=== PATIENT | female | born 1950 | race Caucasian/White ===

== ENCOUNTER 2021-04-28 13:41 | Inpatient (IN) | payer MEDICARE, OTHER ==
[2021-04-28] VITALS (21 sets, daily range): BP systolic 54–187; BP diastolic 38–131
[~2021-04-28] VITALS: Ht 162.6 cm; Wt 76.3 kg
[~2021-04-28 13:41] MED LIST: CITA10TA8 PO; CYCL10TA19 PO; HYDR1TAB16 PO
--- NOTE | 2021-04-28 14:18 | NUR ---
Pt admitted to room 110 from [place] ED via EMS at 1330. Pt is intubated and occasionally externally pacing. Pt had a large liquid stool upon transfer to room. Pt cleaned and rectal tube placed with copious amounts of liquid stool draining. Left allison I/O removed due to displacement and dressing applied. SR/ST on monitor, Dr. Wyatt here to see pt and instructed to turn pacemaker rate down to 45. Dr. Noble here to see pt as well and is to place orders. Family at bedside, updated on pt condition and plan of care.
--- NOTE | 2021-04-28 14:36 | PDOC2 ---
CONSULT Date of Consult Date of Consult DATE: 04/28/21 TIME: 14:27 Reason for Consult Reason for Consult: Cardiac arrest Referring Physician Referring Physician: Dr. Noble Identification/Chief Complaint Chief Complaint The patient was found unresponsive at home. Source Source: Chart review History of Present Illness Reason for Visit: The patient is a 70-year-old female who was found unresponsive by her family at home. Paramedics were called and they initiated transport to [facility]. In route the patient lost her pulse although she has been unresponsive throughout the transport. CPR was started in the ambulance. Upon arrival in the emergency room the patient was asystolic. ACLS protocols were maintained for an extended period of time and the patient apparently briefly needed external pacing. The patient was initially found to be asystolic upon arrival in the emergency room. After extensive efforts and after intubation the patient rhythm was converted to a sinus tachycardia. She continued on baseline treatments including ventilator support and was transported to [facility]. Initial labs at [facility] include a potassium of 4.3 creatinine of 1.1 glucose of 219 troponin of 26 white count 12.4 hemoglobin of 12.6 hematocrit of 38.8. Rapid Covid was negative. Chest x-ray showed bilateral pulmonary edema. EKG showed a sinus tachycardia with nonspecific ST-T wave changes and a possible left bundle. The patient is now nonresponsive on a ventilator in the intensive care unit at [place]. Heart rate of 110, blood pressure 158/98. Past Medical History Cardiovascular: CAD, CHF, HTN, Hyperlipidemia Endocrine: Hyperthyroidism Past Surgical History Past Surgical History: Other (Right carotid endarterectomy) Family History Family History: Heart Disease Social History No Current Medications Current Medications Active Scripts Active Reported Celexa (Citalopram Hydrobromide) 10 Mg Tablet 1 Tab PO DAILY Cyclobenzaprine Hcl 10 Mg Tablet 1 Tab PO TID Vicodin Hp 10-300 Mg Tablet (Hydrocodone Bit/Acetaminophen) 1 Each Tablet 1 Each PO Q6H PRN Allergies Allergies: Coded Allergies: atropine (Verified Allergy, Intermediate, Rash, 03/18/14) diphenoxylate (Verified Allergy, Intermediate, Rash, 03/18/14) ROS Review of System The patient is intubated. Physical Exam General: Other (Intubated and nonresponsive.) Lungs: Other (Bilaterally decreased breath sounds) Heart: Other (Rate of 104.) Abdomen: Other (Mildly decreased bowel sounds) Vitals VITALS Vital Signs Date Time Temp Pulse Resp B/P (MAP) Pulse Ox O2 Delivery O2 Flow Rate FiO2 04/28/21 13:34 100 Ventilator Labs Labs Laboratory Tests Test 04/28/21 13:59 Glucose (Fingerstick) 304 mg/dL (70-99) Laboratory Tests Test 04/28/21 13:59 Glucose (Fingerstick) 304 mg/dL (70-99) Images Images Chest x-ray at [facility] showed bilateral pulmonary edema Assessment/Plan Assessment/Plan 1. Out of hospital cardiac arrest. Prolonged efforts at resuscitation as above. Patient is now intubated. Rhythm is a sinus tachycardia. Blood pressure systolic of greater than 150. Pulmonary consult for ventilator management. Patient is being evaluated for possible CT scanning. She has had no significant bradycardia arrhythmias since her initial resuscitation and will continue to monitor in the ICU. 2. Respiratory failure secondary to cardiac arrest as above. Intubated. Initial chest x-ray showed pulmonary edema. Will consider diuresis later today after further testing has been obtained. Pulmonary evaluation as noted above. 3. History of possible coronary artery disease. Initial troponin is normal. We will trend. We will continue present medications. Echocardiogram for LV function. 4. Previous right carotid endarterectomy. 5. History of hyperlipidemia. Will check morning lab. RYAN KOENIG MD Apr 28, 2021 14:36
[2021-04-28] MEDS ORDERED: POTASSIUM CHLORIDE 20MEQ 100 ML IV SCH ×3 (14:45→15:00)
[2021-04-28] MEDS ORDERED: ONDANSETRON PF 4 MG/2 ML VIAL. IVP PRN (14:45)
[2021-04-28] MEDS ORDERED: SODIUM PHOSPHATE 40 MMOL in IV NORMAL SALINE 250ML 250 ML IV ONE (14:45)
[2021-04-28] MEDS ORDERED: POTASSIUM PHOS,M-BASIC-D-BASIC 13.6 MMOL in IV NORMAL SALINE 250ML 250 ML IV SCH (14:45)
[2021-04-28] MEDS ORDERED: DOCUSATE SODIUM 100 MG CAPSULE. PO PRN (14:45)
[2021-04-28] MEDS ORDERED: POTASSIUM CHLORIDE 10MEQ 100 ML IV SCH ×3 (14:45)
[2021-04-28] MEDS ORDERED: POTASSIUM CHLORIDE 20 MEQ TABLET.ER. PO SCH ×2 (14:45)
[2021-04-28] MEDS ORDERED: POTASSIUM CHLORIDE 20 MEQ TABLET.ER. PO ONE (14:45)
[2021-04-28] MEDS ORDERED: SENNOSIDES 8.6 MG TABLET PO PRN (14:45)
--- NOTE | 2021-04-28 14:45 | PDOC1 ---
History and Physical Date of Service: DOS: DATE: 04/28/21 TIME: 14:28 Chief Complaint: Chief Complain: Found unresponsive History of Present Illness: HPI: 70-year-old female who presents by EMS to [facility] as a CODE BLUE. Patient was intubated in the field and all history is obtained from EMS. Patient was most reported well at around 730 according to the ex-. However patient was found at 830 and she was unresponsive by her ex-. Patient found her and her heart rate was in the 40s and was not breathing. CPR was initiated in route. Prior to arrival to the emergency room pulses were lost and CPR was restarted. One dose of epinephrine was given. ROSC he was achieved in the ED. Patient did not require any sedation through the process. [facility] decided to transfer to [facility] for further ICU care. No family to be found when patient arrived to the ICU. Patient currently is on Levophed at 0.2 mics per minute and not requiring any external pacing with the pacer threshold set at 40 bpm. Heart rate currently is 90 bpm. Patient is unresponsive upon my exam and pulse are bilaterally dilated and fixed. Patient is completely off of sedation. There is liquidy stool in the rectal tube that is foul-smelling. No other lesions or wounds or infectious sources are found. Past Medical/Surgical History: PMH/PSH: Past medical history: Dyslipidemia, coronary heart disease, hypertension, hypothyroidism No known past surgical history Allergies: Allergies: Coded Allergies: atropine (Verified Allergy, Intermediate, Rash, 03/18/14) diphenoxylate (Verified Allergy, Intermediate, Rash, 03/18/14) Family History: Family History: Reviewed with no relevant findings Social History: Social History: 1 pack/day smoker Current Medications: Current Medications Active Scripts Active Reported Celexa (Citalopram Hydrobromide) 10 Mg Tablet 1 Tab PO DAILY Cyclobenzaprine Hcl 10 Mg Tablet 1 Tab PO TID Vicodin Hp 10-300 Mg Tablet (Hydrocodone Bit/Acetaminophen) 1 Each Tablet 1 Each PO Q6H PRN ROS: Review of Systems Review of System Unable to obtain due to intubation Physical Exam: Vital Signs: Vital Signs Date Time Temp Pulse Resp B/P (MAP) Pulse Ox O2 Delivery O2 Flow Rate FiO2 04/28/21 13:34 100 Ventilator Physcial Exam: GEN: Intubated HEENT: Normal cephalic, atraumatic, external auditory canals are patent EYES: Pupils are equally dilated. Does not react to light. MUSCULOSKELETAL: Well developed ENDOCRINE: No thyromegaly was palpated LYMPHATICS: No cervical chain or axillary nodes were noted HEMATOPOIETIC: No bruising NECK: Supple, no JVD, no thyromegaly was noted LUNGS: Bilateral crackles HEART: RRR, Peripheral pulses intact, no obvious murmurs noted ABDOMEN: Soft, nontender. Positive bowel sounds, no organomegaly, normal mary wel sounds rectal tube in place with copious amounts of liquid stool. EXTREMITIES: Without clubbing, cyanosis, or edema. Pedal pulses intact. Negative Homans sign NEUROLOGIC: Currently sedated SKIN: No ulcerations or rashes, good skin turgor, no jaundice Labs: Labs: Laboratory Tests Test 04/28/21 13:59 Glucose (Fingerstick) 304 mg/dL (70-99) Laboratory Tests Test 04/28/21 13:59 Glucose (Fingerstick) 304 mg/dL (70-99) Images: Images Chest x-ray reviewed from [facility] showing left worse than right diffuse pulmonary infiltrates Assessment/Plan Assessment/Plan Cardiogenic shock requiring Levophed Hemodynamically unstable bradycardia requiring external pacemaker Acute hypoxic respiratory failure Cardiac arrest ANTIONETTE due to vasomotor nephropathy Bilateral pulmonary infiltrates, likely aspiration pneumonia History of coronary heart disease History of hyperthyroidism History of hypertension Admit to ICU for further management Cardiology consult to consider pacemaker placement Pulmonology consult for vent management Neurology consult Pending CT head and chest abdomen pelvis Pending C. difficile Continue IV Zosyn Continue property assessment monitor Continue external pacemaking Continue vasopressors with map goals greater than 55 SCD for DVT prophylaxis Protonix while intubated GI prophylaxis ADA diet CODE STATUS unknown Discussed with RN and SW Disposition ICU management as above DPOA: Ex-, daughter A total of 55 minutes of critical care time was spent in reviewing chart, labs, and images. Discussed with RN and SW. Justifications for Admission Other Justification WILLIAM DUCKWORTH MD Apr 28, 2021 14:45
[2021-04-28] MEDS ORDERED: ELECTROLYTE (ICU) PROTOCOL. MC PRN (15:00)
[2021-04-28] MEDS ORDERED: NOREPINEPHRINE VIAL 8 MG in IV DEXTROSE 5% 250 ML IV PRN (15:15)
[2021-04-28 15:32] LABS: BASO # 0.1 x10^3/uL (0.0-0.2); BASO % 0 % (0-3); EOS # 0.1 x10^3/uL (0.0-0.7); EOS % 0 % (0-3); HEMATOCRIT 47.4 % (36.0-47.0); HEMOGLOBIN 15.7 g/dL (12.0-15.5); LYMPH # 1.8 x10^3/uL (1.0-4.8); LYMPH % 6 % (24-48); MEAN CORPUSCULAR HEMOGLOBIN 30 pg (25-35); MEAN CORPUSCULAR HGB CONC 33 g/dL (31-37); MEAN CORPUSCULAR VOLUME 90 fL (79-100); MONO # 2.2 x10^3/uL (0.0-1.1); MONO % 7 % (0-9); NEUT # 26.6 x10^3/uL (1.8-7.7); NEUT % 86 % (31-73); PLATELET COUNT 268 x10^3/uL (140-400); RED BLOOD COUNT 5.26 x10^6/uL (3.50-5.40); RED CELL DISTRIBUTION WIDTH 14.1 % (11.5-14.5); WHITE BLOOD COUNT 30.8 x10^3/uL (4.0-11.0)
[2021-04-28 15:54] LABS: ALBUMIN 3.8 g/dL (3.4-5.0); ALBUMIN/GLOBULIN RATIO 1.1 (1.0-1.7); CALCIUM 8.4 mg/dL (8.5-10.1); CREATININE 1.7 mg/dL (0.6-1.0); GFR 29.7; MAGNESIUM 2.1 mg/dL (1.8-2.4); POTASSIUM 4.9 mmol/L (3.5-5.1); TOTAL BILIRUBIN 1.2 mg/dL (0.2-1.0); TOTAL PROTEIN 7.3 g/dL (6.4-8.2)
[2021-04-28 16:08] LABS: BASE EXCESS ABG -1 mmol/L (-3-3); CORRECTED PCO2 ABG 29 mmHg; CORRECTED PH ABG 7.49; CORRECTED PO2 ABG 129 mmHg; HCO3 ABG 22 mmol/L (21-28); SAT O2 ABG 98 % (92-99)
[2021-04-28 16:08] LABS: % BANDS 21 % (0-9); % LYMPHS 7 % (24-48); % MONOS 5 % (0-10); % SEGS 67 % (35-66); PLT ESTIMATE ADEQUATE (ADEQUATE)
[2021-04-28 16:09] LABS: FIO2 ABG 50/VENT
[2021-04-28 16:31] LABS: BARBITURATES NEG (NEG); BENZODIAZEPINES NEG (NEG); CANNABINOIDS NEG (NEG); COCAINE NEG (NEG); METHADONE NEG (NEG); OPIATES POS (NEG); PHENCYCLIDINE NEG (NEG)
[2021-04-28 16:34] LABS: AMPHETAMINE/METHAMPHETAMINE NEG (NEG)
--- NOTE | 2021-04-28 16:48 | RAD ---
FOR INTERNAL CODING PURPOSES Critical result: Findings discussed with Nancy, the nurse taking care of the patient in ICU at 04/28/2021 4:40 PM. RESULT CODE: (C) Exam performed: CT head without contrast HISTORY: Cardiac arrest DATE OF SERVICE: 04/28/2021. COMPARISON: CT head without contrast from May 19, 2012. TECHNIQUE: Contiguous helical acquisitions are obtained from the foramen magnum to the vertex without IV contrast. FINDINGS: There is diffuse subarachnoid hyperattenuation throughout consistent with subarachnoid hemorrhage. Th e ventricles are midline without evidence of dilatation. Normal wilson-white differentiation is lost. N o intraparenchymal hemorrhage or mass lesion is identified. There is no midline shift. IMPRESSION: Extensive subarachnoid hemorrhage. Electronically signed by: Justa Ayon MD (04/28/2021 4:46 PM) [facility]
--- NOTE | 2021-04-28 17:15 | RAD ---
EXAMINATION: CT chest, abdomen and pelvis without IV contrast. INDICATION:70 years, Female, cardiac arrest. TECHNIQUE: Axial CT images of the chest, abdomen and pelvis were obtained. Coronal and sagittal refor matted performed. COMPARISON: None. Exposure: One or more of the following individualized dose reduction techniques were utilized for thi s examination: 1. Automated exposure control 2. Adjustment of the mA and/or kV according to patient size 3. Use of iterative reconstruction technique. FINDINGS: CHEST: Visualized thyroid and esophagus are unremarkable. No lymphadenopathy in the chest by size criteria. Mild cardiomegaly. No pericardial effusion. Mild coronary artery atherosclerotic calcifications. Norm al caliber thoracic aorta and pulmonary arteries. Central airways are patent. Endotracheal tube tip terminates in the proximal left mainstem bronchus. Diffuse bronchial wall thickening in the lower lobes with endobronchial debris and atelectatic change s/consolidations in the lower lobes. Moderate centrilobular pulmonary emphysema. No pleural effusion or pneumothorax. Subsegmental atelectasis in the right middle lobe and lingula. There is a 3 mm pulmo nary nodule in the left upper lobe (series 2 image 20). Calcified granuloma in the right upper lobe. ABDOMEN/PELVIS: Within the limitation of noncontrast exam, Normal size and morphology of the liver. Subcentimeter hypodensity in the left hepatic lobe, too smal l to characterize. Cholecystectomy. Dilated central intrahepatic and extrahepatic biliary ducts with smooth tapering distally, the maximum diameter of the common bile duct measures 1.5 cm. No calcified choledocholithiasis. Spleen is unremarkable. Moderate to severe atrophic pancreatic parenchyma with f at infiltration. Nodular thickening of the left adrenal glands, without discrete nodule. No hydronephrosis or nephrolithiasis. Multiple simple and mildly complex cystic lesions in both renal cortices, the largest measures 7 cm. Some of the cysts demonstrate thin calcified wall or internal s eptation, for example a lobulated inferior pole right renal cyst measures 4.5 cm. These cysts are mos t consistent with Bosniak type I and type II cyst. Additional, three indeterminate hypodense lesions along the posterior cortex of the upper and lower poles as well as posterior lateral cortex of the in terpolar left kidney, the largest measures 3.0 cm. Nonspecific bilateral perinephric fat stranding. Rectal tube seen. No bowel obstruction or wall thickening. Fluid-filled nondistended small and large bowel loops with air-fluid levels, findings can be seen in diarrhea. Normal appendix. No pneumoperito neum or ascites. Mild infrarenal abdominal aortic aneurysm measures up to 3.3 cm in diameter. No lymp hadenopathy in the abdomen or pelvis by size criteria. Decompressed urinary bladder with Foleys arvind ter in place. Hysterectomy. No suspicious pelvic masses. MUSCULOSKELETAL: No acute osseous process or suspicious lesion. Posterior hardware fusion in the lower lumbar spine. D iffuse osteopenia. IMPRESSION: 1. Endotracheal tube tip terminates in the proximal left mainstem bronchus. Recommend 3 to 4 cm retr action. 2. Diffuse bronchial wall thickening in the lower lobes with endobronchial debris and atelectatic ch anges/consolidations in the lower lobes likely due to aspiration or pneumonia. 3. Moderate centrilobular pulmonary emphysema. 4. 3 mm pulmonary nodule in the left upper lobe. High-risk patient, consider 12 months follow-up wit h CT chest. 5. Three indeterminate hypodense lesions along the posterior cortex of the upper and lower poles as well as posterior lateral cortex of the interpolar left kidney. Differential includes complex hemorrh agic/proteinaceous cysts versus solid renal masses. Recommend outpatient based MRI renal mass protoco l. 6. Dilated central intrahepatic and extrahepatic biliary ducts with smooth tapering distally. Correl ate with liver function tests. 7. Mild infrarenal abdominal aortic aneurysm measuring 3.3 cm in diameter. 8. Fluid-filled nondistended small and large bowel loops with air-fluid levels, findings can be seen in diarrhea. Moore findings were discussed with patient's nurse Kam on 04/28/2021 at 5:10 PM. Electronically signed by: Kellie Miller MD (04/28/2021 5:12 PM) [id number]
[2021-04-28] MEDS ORDERED: POTASSIUM & SODIUM PHOSPHATES PACKET. PO SCH (21:00)
[2021-04-29] VITALS (7 sets, daily range): BP systolic 93–117; BP diastolic 51–65
[2021-04-29 05:07] LABS: BASO # 0.1 x10^3/uL (0.0-0.2); BASO % 0 % (0-3); EOS % 0 % (0-3); HEMATOCRIT 42.1 % (36.0-47.0); HEMOGLOBIN 14.2 g/dL (12.0-15.5); LYMPH # 1.3 x10^3/uL (1.0-4.8); LYMPH % 7 % (24-48); MEAN CORPUSCULAR HEMOGLOBIN 30 pg (25-35); MEAN CORPUSCULAR HGB CONC 34 g/dL (31-37); MEAN CORPUSCULAR VOLUME 89 fL (79-100); MONO # 1.3 x10^3/uL (0.0-1.1); MONO % 7 % (0-9); NEUT # 16.6 x10^3/uL (1.8-7.7); NEUT % 86 % (31-73); PLATELET COUNT 218 x10^3/uL (140-400); RED BLOOD COUNT 4.74 x10^6/uL (3.50-5.40); RED CELL DISTRIBUTION WIDTH 14.2 % (11.5-14.5); WHITE BLOOD COUNT 19.3 x10^3/uL (4.0-11.0)
[2021-04-29 05:25] LABS: ALBUMIN 3.2 g/dL (3.4-5.0); ALBUMIN/GLOBULIN RATIO 1.1 (1.0-1.7); CALCIUM 8.3 mg/dL (8.5-10.1); CREATININE 2.1 mg/dL (0.6-1.0); GFR 23.3; POTASSIUM 3.8 mmol/L (3.5-5.1); TOTAL BILIRUBIN 1.2 mg/dL (0.2-1.0); TOTAL PROTEIN 6.2 g/dL (6.4-8.2)
[2021-04-29 05:30] LABS: CHOLESTEROL/HDL RATIO 2.4
--- NOTE | 2021-04-29 08:43 | NUR ---
[facility] with pt daughter and son this morning, updated them that pt is now normothermic and still does not have any reflexes. They state that pt stated she did not want to be kept alive by machines and asked about comfort care. Explained process to them, they stated they wanted family to come through and then they would be ready for comfort care. Family up to visit, they stated they are ready, page sent to Dr Noble for terminal extubation orders and meds. Addendum: 04/29/21 at 0859 by WESLEY CREWS RN Spoke with Dr Noble, he gave palliative care order set order and terminal extubation.
[2021-04-29] MEDS ORDERED: ACETAMINOPHEN 650 MG/20.3 ML SOLUTION. PEG PRN (09:00)
[2021-04-29] MEDS ORDERED: MORPHINE SULFATE 2 MG/ML INJ. IVP PRN (09:00)
[2021-04-29] MEDS ORDERED: fentaNYL PF VIAL 100 MCG/2 ML VIAL IVP PRN ×3 (09:00)
[2021-04-29] MEDS ORDERED: 0.9 % SODIUM CHLORIDE 10 ML DISP.SYRIN. IV PRN (09:00)
[2021-04-29] MEDS ORDERED: ACETAMINOPHEN 325 MG TABLET. PO PRN (09:00)
[2021-04-29] MEDS ORDERED: SCOPOLAMINE 1.5MG PATCH. TD PRN (09:00)
[2021-04-29] MEDS ORDERED: MORPHINE SULFATE 4 MG/ML INJ. IVP PRN (09:00)
[2021-04-29] MEDS ORDERED: ACETAMINOPHEN 650 MG SUPP.RECT. PR PRN (09:00)
[2021-04-29] MEDS ORDERED: MORPHINE SULFATE 20 MG/ML CONC SOLUTION. PO/SL PRN ×2 (09:00)
[2021-04-29] MEDS ORDERED: SODIUM PHOSPHATES 19/7GM 133 ML ENEMA. PR PRN (09:00)
[2021-04-29] MEDS ORDERED: MAGNESIUM SULFATE 4GM 100 ML IV SCH (09:00)
[2021-04-29] MEDS ORDERED: ONDANSETRON PF 4 MG/2 ML VIAL. IVP PRN (09:00)
[2021-04-29] MEDS ORDERED: PROCHLORPERAZINE 10 MG/2 ML VIAL. IVP PRN (09:00)
[2021-04-29] MEDS ORDERED: HYDROmorphone 2 MG/ML VIAL IVP PRN ×2 (09:00)
[2021-04-29] MEDS ORDERED: HALOPERIDOL LACTATE 5 MG/ML VIAL. IVP PRN ×3 (09:00)
[2021-04-29] MEDS ORDERED: BISACODYL 10 MG SUPP.RECT. PR PRN (09:00)
--- NOTE | 2021-04-29 09:31 | PDOC ---
[employer] PROGRESS NOTE Date of Service DOS: DATE: 04/29/21 TIME: 09:29 Chief Complaint Chief Complaint Extensive bilateral subarachnoid hemorrhage Cardiogenic shock requiring Levophed Hemodynamically unstable bradycardia requiring external pacemaker Acute hypoxic respiratory failure Cardiac arrest ANTIONETTE due to vasomotor nephropathy Bilateral pulmonary infiltrates, likely aspiration pneumonia History of coronary heart disease History of hyperthyroidism History of hypertension Admit to ICU for further management Cardiology consult to consider pacemaker placement Pulmonology consult for vent management Neurology consult Pending CT head and chest abdomen pelvis Pending C. 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 Patient was intubated in the field and all history is obtained from EMS. Patient was most reported well at around 730 according to the ex-. However patient was found at 830 and she was unresponsive by her ex-. Patient found her and her heart rate was in the 40s and was not breathing. CPR was initiated in route. Prior to arrival to the emergency room pulses were lost and CPR was restarted. One dose of epinephrine was given. ROSC he was achieved in the ED. Patient did not require any sedation through the process. [facility] decided to transfer to [facility] for further ICU care. No family to be found when patient arrived to the ICU. Patient currently is on Levophed at 0.2 mics per minute and not requiring any external pacing with the pacer threshold set at 40 bpm. Heart rate currently is 90 bpm. Patient is unresponsive upon my exam and pulse are bilaterally dilated and fixed. Patient is completely off of sedation. There is liquidy stool in the rectal tube that is foul-smelling. No other lesions or wounds or infectious sources are found. 04/29/2021 No acute events overnight. Still no response and off sedation while intubated. Not withdrawing to pain at all. We will continue to transition to comfort care. Plan for extubation and all palliative measures will begin shortly after extubation. Patient's chart, labs, images were reviewed and discussed with RN Vitals/I&O Vitals/I&O: Vital Signs Date Time Temp Pulse Resp B/P (MAP) Pulse Ox O2 Delivery O2 Flow Rate FiO2 04/29/21 08:54 95 Ventilator 04/29/21 06:00 99.3 83 16 93/57 99.3 I & O 04/28/21 04/28/21 04/29/21 15:00 23:00 07:00 Intake Total 81 ml 126.0 ml Output Total 175 ml 135 ml 150 ml Balance -175 ml -54 ml -24.0 ml Physical Exam General: Other (Intubated and nonresponsive.) Heart: Other (Rate of 104.) Abdomen: Other (Mildly decreased bowel sounds) Labs Labs: Laboratory Tests Test 04/28/21 13:59 04/28/21 15:18 04/28/21 15:27 04/28/21 15:50 Glucose (Fingerstick) 304 mg/dL (70-99) White Blood Count 30.8 x10^3/uL (4.0-11.0) Red Blood Count 5.26 x10^6/uL (3.50-5.40) Hemoglobin 15.7 g/dL (12.0-15.5) Hematocrit 47.4 % (36.0-47.0) Mean Corpuscular Volume 90 fL (79-100) Mean Corpuscular Hemoglobin 30 pg (25-35) Mean Corpuscular Hemoglobin Concent 33 g/dL (31-37) Red Cell Distribution Width 14.1 % (11.5-14.5) Platelet Count 268 x10^3/uL (140-400) Neutrophils (%) (Auto) 86 % (31-73) Lymphocytes (%) (Auto) 6 % (24-48) Monocytes (%) (Auto) 7 % (0-9) Eosinophils (%) (Auto) 0 % (0-3) Basophils (%) (Auto) 0 % (0-3) Neutrophils # (Auto) 26.6 x10^3/uL (1.8-7.7) Lymphocytes # (Auto) 1.8 x10^3/uL (1.0-4.8) Monocytes # (Auto) 2.2 x10^3/uL (0.0-1.1) Eosinophils # (Auto) 0.1 x10^3/uL (0.0-0.7) Basophils # (Auto) 0.1 x10^3/uL (0.0-0.2) Segmented Neutrophils % 67 % (35-66) Band Neutrophils % 21 % (0-9) Lymphocytes % 7 % (24-48) Monocytes % 5 % (0-10) Platelet Estimate Adequate (ADEQUATE) Sodium Level 143 mmol/L (136-145) Potassium Level 4.9 mmol/L (3.5-5.1) Chloride Level 106 mmol/L (98-107) Carbon Dioxide Level 26 mmol/L (21-32) Anion Gap 11 (6-14) Blood Urea Nitrogen 19 mg/dL (7-20) Creatinine 1.7 mg/dL (0.6-1.0) Estimated GFR (Cockcroft-Gault) 29.7 BUN/Creatinine Ratio 11 (6-20) Glucose Level 299 mg/dL (70-99) Lactic Acid Level 4.6 mmol/L (0.4-2.0) Calcium Level 8.4 mg/dL (8.5-10.1) Phosphorus Level 4.0 mg/dL (2.6-4.7) Magnesium Level 2.1 mg/dL (1.8-2.4) Total Bilirubin 1.2 mg/dL (0.2-1.0) Aspartate Amino Transf (AST/SGOT) 172 U/L (15-37) Alanine Aminotransferase (ALT/SGPT) 128 U/L (14-59) Alkaline Phosphatase 91 U/L (46-116) Total Protein 7.3 g/dL (6.4-8.2) Albumin 3.8 g/dL (3.4-5.0) Albumin/Globulin Ratio 1.1 (1.0-1.7) O2 Saturation 98 % (92-99) Arterial Blood pH (Temp corrected) 7.49 Arterial Blood pCO2 (Temp correct) 29 mmHg Arterial Blood pO2 (Temp corrected) 129 mmHg Arterial Blood HCO3 22 mmol/L (21-28) Arterial Blood Base Excess -1 mmol/L (-3-3) FiO2 50/vent Urine Opiates Screen Pos (NEG) Urine Methadone Screen Neg (NEG) Urine Barbiturates Neg (NEG) Urine Phencyclidine Screen Neg (NEG) Urine Amphetamine/Methamphetamine Neg (NEG) Urine Benzodiazepines Screen Neg (NEG) Urine Cocaine Screen Neg (NEG) Urine Cannabinoids Screen Neg (NEG) Urine Ethyl Alcohol Neg (NEG) Test 04/28/21 18:45 04/29/21 04:45 Lactic Acid Level 2.4 mmol/L (0.4-2.0) White Blood Count 19.3 x10^3/uL (4.0-11.0) Red Blood Count 4.74 x10^6/uL (3.50-5.40) Hemoglobin 14.2 g/dL (12.0-15.5) Hematocrit 42.1 % (36.0-47.0) Mean Corpuscular Volume 89 fL (79-100) Mean Corpuscular Hemoglobin 30 pg (25-35) Mean Corpuscular Hemoglobin Concent 34 g/dL (31-37) Red Cell Distribution Width 14.2 % (11.5-14.5) Platelet Count 218 x10^3/uL (140-400) Neutrophils (%) (Auto) 86 % (31-73) Lymphocytes (%) (Auto) 7 % (24-48) Monocytes (%) (Auto) 7 % (0-9) Eosinophils (%) (Auto) 0 % (0-3) Basophils (%) (Auto) 0 % (0-3) Neutrophils # (Auto) 16.6 x10^3/uL (1.8-7.7) Lymphocytes # (Auto) 1.3 x10^3/uL (1.0-4.8) Monocytes # (Auto) 1.3 x10^3/uL (0.0-1.1) Eosinophils # (Auto) 0.0 x10^3/uL (0.0-0.7) Basophils # (Auto) 0.1 x10^3/uL (0.0-0.2) Sodium Level 149 mmol/L (136-145) Potassium Level 3.8 mmol/L (3.5-5.1) Chloride Level 108 mmol/L (98-107) Carbon Dioxide Level 27 mmol/L (21-32) Anion Gap 14 (6-14) Blood Urea Nitrogen 33 mg/dL (7-20) Creatinine 2.1 mg/dL (0.6-1.0) Estimated GFR (Cockcroft-Gault) 23.3 BUN/Creatinine Ratio 16 (6-20) Glucose Level 117 mg/dL (70-99) Calcium Level 8.3 mg/dL (8.5-10.1) Total Bilirubin 1.2 mg/dL (0.2-1.0) Aspartate Amino Transf (AST/SGOT) 117 U/L (15-37) Alanine Aminotransferase (ALT/SGPT) 93 U/L (14-59) Alkaline Phosphatase 71 U/L (46-116) Troponin I High Sensitivity 9283 ng/L (4-50) Total Protein 6.2 g/dL (6.4-8.2) Albumin 3.2 g/dL (3.4-5.0) Albumin/Globulin Ratio 1.1 (1.0-1.7) Triglycerides Level 114 mg/dL (0-150) Cholesterol Level 111 mg/dL (0-200) LDL Cholesterol, Calculated 42 mg/dL (0-100) VLDL Cholesterol, Calculated 23 mg/dL (0-40) Non-HDL Cholesterol Calculated 65 mg/dL (0-129) HDL Cholesterol 46 mg/dL (40-60) Cholesterol/HDL Ratio 2.4 Comment Review of Relevant I have reviewed the following items june (where applicable) has been applied. Medications: Current Medications Medications (Trade) Dose Ordered Sig/Kayla Route PRN Reason Start Time Stop Time Status Last Admin Dose Admin Norepinephrine Bitartrate 8 mg/ Dextrose 258 ml @ 14.764 mls/ hr CONT PRN IV PER PROTOCOL 04/28/21 15:15 04/28/21 19:31 Morphine Sulfate (Morphine Sulfate) 2 mg PRN Q2HR PRN IVP PAIN OR DYSPNEA,1st CHOICE 04/29/21 09:00 04/29/21 09:05 Lorazepam (Ativan Inj) 2 mg PRN 1X PRN IVP ANXIETY / AGITATION 04/29/21 09:00 04/29/21 09:06 DC 04/29/21 09:05 Justifications for Admission Other Justification WILLIAM DUCKWORTH MD Apr 29, 2021 09:31
--- NOTE | 2021-04-29 09:35 | NUR ---
pt terminally extubated at 0912, pt was premedicated with morphine and ativan. pt did not take any breaths after extubation. pt went asystole and was assessed by 2 RNs per pronouncement sheet at 0931. Pt family took two necklaces, night gown, DL and medications. Addendum: 04/29/21 at 0950 by WESLEY CREWS RN Dr Noble notified of . Pt dentures were found and sent with pt to [facility]. Addendum: 04/29/21 at 1022 by WESLEY CREWS RN Pt family denied all donation yesterday.
--- NOTE | 2021-04-29 10:32 | NUR ---
Order received from Dr. Noble at 0905 to comfort care at family's wishes. Patient extubated at 0912 to room air. Dania Stephen RN at bedside.
[2021-04-30 07:12] LABS: PCO2 ABG 32 mmHg (35-46); PO2 ABG 142 mmHg (65-108)
--- NOTE | 2021-04-30 12:37 | PDOC3 ---
[facility] Summary Date of Admission: Date of Admission: Apr 28, 2021 Date of Discharge: Date of Discharge: Apr 29, 2021 Admission Diagnosis: Admitting Diagnosis: SUMMARY Discharge Diagnosis: Discharge Diagnosis: Extensive bilateral subarachnoid hemorrhage Cardiogenic shock requiring Levophed Hemodynamically unstable bradycardia requiring external pacemaker Acute hypoxic respiratory failure Cardiac arrest ANTIONETTE due to vasomotor nephropathy Bilateral pulmonary infiltrates, likely aspiration pneumonia History of coronary heart disease History of hyperthyroidism History of hypertension Hospital Course: Hospital Course: 70-year-old female who presents by EMS to [facility] as a CODE BLUE. Patient was intubated in the field and all history is obtained from EMS. Patient was most reported well at around 730 according to the ex-. However patient was found at 830 and she was unresponsive by her ex-. Patient found her and her heart rate was in the 40s and was not breathing. CPR was initiated in route. Prior to arrival to the emergency room pulses were lost and CPR was restarted. One dose of epinephrine was given. ROSC he was achieved in the ED. Patient did not require any sedation through the process. [facility] decided to transfer to [facility] for further ICU care. No family to be found when patient arrived to the ICU. Patient currently is on Levophed at 0.2 mics per minute and not requiring any external pacing with the pacer threshold set at 40 bpm. Heart rate currently is 90 bpm. Patient is unresponsive upon my exam and pulse are bilaterally dilated and fixed. Patient is completely off of sedation. There is liquidy stool in the rectal tube that is foul-smelling. No other lesions or wounds or infectious sources are found. 04/29/2021 No acute events overnight. Still no response and off sedation while intubated. Not withdrawing to pain at all. We will continue to transition to comfort care. Plan for extubation and all palliative measures will begin shortly after extubation. Patient's chart, labs, images were reviewed and discussed with RN pt terminally extubated at 0912, pt was premedicated with morphine and ativan. pt did not take any breaths after extubation. pt went asystole and was assessed by 2 RNs per pronouncement sheet at 0931. Pt family took two necklaces, night gown, DL and medications. Pt family denied all donation yesterday. Disposition: Disposition/Orders: Activity: Activity: Resume previous activity Medications: Home Meds Reported Medications Citalopram Hydrobromide (CELEXA) 10 Mg Tablet, 1 TAB PO DAILY, #30 TAB 2 Refills 03/18/14 Cyclobenzaprine Hcl (CYCLOBENZAPRINE HCL) 10 Mg Tablet, 1 TAB PO TID, #90 TAB 03/18/14 Hydrocodone Bit/Acetaminophen (VICODIN HP 10-300 MG TABLET) 1 Each Tablet, 1 EACH PO Q6H PRN, TAB 0 Refills 03/18/14 Scheduled Citalopram Hydrobromide (Celexa), 1 TAB PO DAILY, (Reported) Cyclobenzaprine Hcl (Cyclobenzaprine Hcl), 1 TAB PO TID, (Reported) Scheduled PRN Hydrocodone Bit/Acetaminophen (Vicodin Hp 10-300 Mg Tablet), 1 EACH PO Q6H PRN, (Reported) Total Time: Total Time: Total time spent was 33 minutes in preparing this summary Patient seen and examined on day of No acute abnormal findings. Justicifation of Admission Dx: Justifications for Admission: Justification of Admission Dx: Yes Acute Hemorrhagic Stroke: Acute Hemorrhagic Stroke WILLIAM DUCKWORTH MD Apr 30, 2021 12:37
== END 2021-04-29 09:31 | DRG 208 ==
LOC: 1 WEST ICU 13:41
PROVIDERS: ADMIT Internal Medicine; ATTEND Internal Medicine
PROC: 5A1935Z Respiratory Ventilation, Less than 24 Consecutive Hours (ICD-10-PCS; principal; 2021-04-28)
PROC: 0BH17EZ Insertion of Endotracheal Airway into Trachea, Via Natural or Artificial Opening (ICD-10-PCS; 2021-04-28)
DX: J96.01 Acute respiratory failure with hypoxia (principal); I60.9 Nontraumatic subarachnoid hemorrhage, unspecified; N17.0 Acute kidney failure with tubular necrosis; J69.0 Pneumonitis due to inhalation of food and vomit; E03.9 Hypothyroidism, unspecified; E78.5 Hyperlipidemia, unspecified; F17.210 Nicotine dependence, cigarettes, uncomplicated; I11.0 Hypertensive heart disease with heart failure; I25.10 Atherosclerotic heart disease of native coronary artery without angina pectoris; I46.9 Cardiac arrest, cause unspecified; I50.9 Heart failure, unspecified; R57.0 Cardiogenic shock; Z20.822 Contact with and (suspected) exposure to COVID-19; Z51.5 Encounter for palliative care; Z87.01 Personal history of pneumonia (recurrent); Z66 Do not resuscitate; Z79.899 Other long term (current) drug therapy; Z88.8 Allergy status to other drugs, medicaments and biological substances
CPT/HCPCS: 36415; 36600; 70450; 71250; 74176; 80053; 80061; 80307; 82805; 82962; 83605; 83735; 84100; 84484; 85007; 85025; 94002; 94003; J2060; J2270; J3490; J7060; G0378